=== PATIENT | female | born 1995 | race Caucasian/White ===

== ENCOUNTER 2021-04-06 14:31 | Emergency (ER) | payer OTHER, SELFPAY ==
[2021-04-06 14:32] VITALS: BP 176/105; PULSE 90; RESP 16; TEMP 36.6; O2SAT 100; BMI 36.6
[2021-04-06 14:39] VITALS: BP 176/105; PULSE 90; RESP 16; TEMP 36.6; O2SAT 100
--- NOTE | 2021-04-06 14:58 | CT_ITS ---
HISTORY: Abdominal pain EXAMINATION: CT Abdomen And Pelvis W/ Contrast Injection TECHNIQUE: Helically acquired images were obtained of the abdomen and pelvis following oral and IV contrast. IV Contrast dosage and agent: 100mL Isovue-300 Oral contrast: Yes. COMPARISON: None. FINDINGS: LOWER CHEST: Lung bases are clear. No cardiomegaly or pericardial effusion. LIVER: Homogeneous. No focal mass. GALLBLADDER AND BILIARY TREE: No calcified gallstones. No gallbladder distension or wall edema. No intra- or extrahepatic biliary ductal dilation. PANCREAS: No focal cystic or solid mass. SPLEEN: Normal size without focal cystic or solid mass. ADRENAL GLANDS: No nodules. KIDNEYS AND URETERS: Normal renal size and position. No hydronephrosis or nephrolithiasis. PERITONEUM: No ascites or free air. BOWEL: Normal appendix. No stomach or bowel distension. No focal inflammatory bowel wall changes. LYMPH NODES: Cluster of mildly enlarged mesenteric lymph nodes in the right lower quadrant. VESSELS: Aorta is non-dilated. URINARY BLADDER: Unremarkable. REPRODUCTIVE ORGANS: No pelvic masses. ABDOMINAL WALL: No discrete abdominal or pelvic wall hernia. BONES: No acute or aggressive abnormality. CT/Abdomen/Pelvis WITH Contrast IMPRESSION: Findings consistent with mesenteric adenitis in the appropriate clinical setting. Otherwise no acute findings in the abdomen or pelvis. Individualized dose optimization techniques were used for this CT. at 1717 Reported and signed by: Miguel Angulo MD Electronically Signed: Miguel Angulo MD at 17:16 EST ,
--- NOTE | 2021-04-06 15:04 | EDS_ITS ---
HPI HPI - GI History of Present Illness Chief Complaint: Abd Pain Informant: patient Abdominal Pain/Flank Pain Onset: Yesterday Context: Gradual Onset Timing: Continuous Quality: Dull and Sharp Location: RLQ Worsened by: Movement Relieved by: Remaining Still Nausea/Vomiting/Emesis GI Symptom: Positive for Nausea; Negative for Vomiting Diarrhea/Melena/Hematochezia GI Symptom: Negative for Diarrhea, Melena and Hematochezia Associated Symptoms Associated Symptoms: Negative for Dysuria, Frequency and Hematuria Narrative Narrative: Patient presents with right lower quadrant abdominal pain that began yesterday. Patient states her pain started in the right lower quadrant. Patient noted some redness over this area yesterday. Patient states this has resolved. Patient states her pain is worse whenever there is any pressure over the right lower abdomen. Patient describes her pain is constant dull ache but is sharp at times. Patient states it is worse with certain movements. Patient states it is better whenever she remains still. Patient admits to nausea but denies any vomiting. Patient states her appetite has not diminished. Patient denies any diarrhea, melena, or hematochezia. Patient denies any urinary complaints. Patient states her last menstrual period was 3 weeks ago. [facility] Medical History Asthma Home Medications desogestrel-ethinyl estradiol [Enskyce] tab 04/06/21 [History Last Taken Un known] levalbuterol HCl INHALATION 04/06/21 [History Last Taken Unknown] levothyroxine 04/06/21 [History Last Taken Unknown] Allergy/AdvReac Type Severity Reaction Status Date / Time amoxicillin [From Augmentin] Allergy Other Verified 04/06/21 14:32 azithromycin [From Zithromax] Allergy Other Verified 04/06/21 14:32 clavulanic acid Allergy Other Verified 04/06/21 14:32 [From Augmentin] Surgical History Hx of tonsillectomy Social History Smoking Status: Never smoker ROS ROS ED Constitutional Constitutional ED: Denies chills or fever(s) Eyes Eyes: Denies blurry vision or change in vision ENT ENT ED: Denies rhinorrhea or sore throat Cardiovascular Cardiovascular: Denies chest pain or palpitations Respiratory/Chest Respiratory/Chest: Denies cough or dyspnea Gastrointestinal Gastrointestinal: Reports abdominal pain and nausea; Denies diarrhea or vomiting Genitourinary Genitourinary ED: Denies dysuria or hematuria Musculoskeletal Musculoskeletal: Denies back pain or neck pain Integumentary Denies abscess or rash Neurologic Neurologic: Denies headache(s) or weakness Allergic/Immunologic Allergic/Immunologic ED: Denies mouth swelling or urticaria EXAM Physical Exam Const Vital Signs: 04/06/21 14:32 04/06/21 14:39 04/06/21 16:35 Temperature 97.8 F 97.8 F 97.5 F L Temperature Source Temporal Temporal Temporal Pulse Rate 90 90 75 Respiratory Rate 16 16 14 Blood Pressure 176/105 H 176/105 H 150/104 H Blood Pressure Mean 128 128 119 Pulse Ox 100 100 Oxygen Delivery Method Room Air Room Air Room Air Positive well nourished and well developed General Appearance ED: well developed HEENT Reports moist mucous membranes Neck supple and no JVD Resp normal respiratory effort and clear to auscultation bilaterally Cardio regular rate, regular rhythm and no murmurs GI normal to inspection, nondistended, normoactive bowel sounds Auscultation: normoactive bowel sounds Palpation: soft and tender RLQ; Negative for guarding or rebound tenderness present Extremity normal to inspection General Extremety ED: Negative for edema or tenderness General Extremity: Negative for edema Neuro oriented x3, CN's II-XII intact bilaterally and no sensory deficits noted Sensorium / Orientation: alert Motor Exam: strength 5/5 throughout Psych mental status grossly normal Skin no rashes or lesions noted MDM MDM MDM Narrative Medical decision making narrative: Patient was given IV fluids, morphine, and Zofran here. CBC was within normal limits. Comprehensive metabolic profile was normal. Lipase was normal. Serum hCG was negative. Urinalysis does not show any evidence of urinary tract infection. CT scan of the abdomen and pelvis was obtained. There is no evidence of appendicitis. There is some mesenteric adenitis noted. Patient was advised of her findings. Patient was instructed to take Tylenol or ibuprofen as needed for pain. Patient was instructed to follow- up with her primary care physician in 5 to 7 days. Patient understood and was agreeable with the plan. All questions were answered. Lab Data Attestation: I reviewed the patient's lab results. Labs: Laboratory Results - last 24 hr 04/06/21 04/06/21 04/06/21 14:22 14:22 14:22 WBC 7.8 RBC 5.10 Hgb 14.2 Hct 42.4 MCV 83.1 MCH 27.8 MCHC 33.5 RDW Std Deviation 37.9 RDW Coeff of Pilar 12.4 Plt Count 244 MPV 10.7 Immature Gran % (Auto) 0.100 Neut % (Auto) 53.8 Lymph % (Auto) 33.6 [place] % (Auto) 8.3 Eos % (Auto) 3.7 Baso % (Auto) 0.5 Absolute Neuts (auto) 4.2 Absolute Lymphs (auto) 2.63 Nucleated RBC % 0 Sodium 140 Potassium 3.9 Chloride 111 H Carbon Dioxide 22.0 Anion Gap 7 BUN 15 Creatinine 0.86 Estim Creat Clear Calc 89.98 Est GFR (MDRD) Af Amer 104 Est GFR (MDRD) Non-Af 86 BUN/Creatinine Ratio 17.5 Glucose 98 Calcium 8.7 Total Bilirubin 0.30 AST 13 L ALT 18 Alkaline Phosphatase 67 Total Protein 7.1 Albumin 3.4 Globulin 3.7 Albumin/Globulin Ratio 0.9 Lipase 89 Serum , Qual NEGATIVE Urine Color Urine Clarity Urine pH Ur Specific [place] Urine Protein Urine Glucose (UA) Urine Ketones Urine Occult Blood Urine Nitrite Urine Bilirubin Urine Urobilinogen Ur Leukocyte Esterase Urine RBC Urine WBC Ur Squamous Epith Cells Urine Bacteria Urine Mucus 04/06/21 15:55 WBC RBC Hgb Hct MCV MCH MCHC RDW Std Deviation RDW Coeff of Pilar Plt Count MPV Immature Gran % (Auto) Neut % (Auto) Lymph % (Auto) [place] % (Auto) Eos % (Auto) Baso % (Auto) Absolute Neuts (auto) Absolute Lymphs (auto) Nucleated RBC % Sodium Potassium Chloride Carbon Dioxide Anion Gap BUN Creatinine Estim Creat Clear Calc Est GFR (MDRD) Af Amer Est GFR (MDRD) Non-Af BUN/Creatinine Ratio Glucose Calcium Total Bilirubin AST ALT Alkaline Phosphatase Total Protein Albumin Globulin Albumin/Globulin Ratio Lipase Serum , Qual Urine Color Yellow Urine Clarity Clear Urine pH 6.0 Ur Specific [place] 1.020 Urine Protein Negative Urine Glucose (UA) Normal Urine Ketones Negative Urine Occult Blood Negative Urine Nitrite Negative Urine Bilirubin Negative Urine Urobilinogen Normal Ur Leukocyte Esterase 100 H Urine RBC 0 SEEN Urine WBC 0-5 SEEN Ur Squamous Epith Cells 0-5 SEEN Urine Bacteria 0 SEEN Urine Mucus 0 SEEN Radiography Diagnostic Testing: Clinical Impression(s) from Imaging Studies Abdomen/Pelvis CT 04/06/21 14:58 IMPRESSION: Findings consistent with mesenteric adenitis in the appropriate clinical setting. Otherwise no acute findings in the abdomen or pelvis. Individualized dose optimization techniques were used for this CT. at 1717 Reported and signed by: Miguel Angulo MD Electronically Signed: Miguel Angulo MD at 17:16 EST , Discharge Plan Triage Chief Complaint: Abd Pain Other Complaint: Other, Pain/Inj ED Provider: Leonel Patton Dx/Rx/DC Orders Clinical Impression: Mesenteric adenitis Instructions: ED Adenitis, Mesenteric Prescriptions: No Action desogestrel-ethinyl estradiol [Enskyce] 0.15-0.03 mg tablet RF: 0 levalbuterol HCl 0.63 mg/3 mL solution for nebulization INHALATION RF: 0 levothyroxine 25 mcg tablet RF: 0 Primary Care Provider: Wyatt Porter Referrals: Wyatt Porter MD [Primary Care Provider] - 5-7 Days Disposition Disposition: Home, Self Care
[2021-04-06] MEDS: Ondansetron 4 MG/2 ML Vial IV (15:09)
[2021-04-06] MEDS: 0.9% Normal Saline 1,000 ML 1000 ML IV (15:10)
[2021-04-06] MEDS: Morphine 4 MG/ML Syringe IV (15:10)
[2021-04-06 15:14] LABS: Absolute Lymphocyte Count 2.63 X10^3/uL (0.83-4.51); Absolute Neutrophil Count 4.2 X10^3/uL (2.0-7.7); Basophil# 0.04 X10^3/uL; Basophil% 0.5 % (0-1); Eosinophil# 0.29 X10^3/uL; Eosinophils% 3.7 % (0-5); Hematocrit 42.4 % (37-47); Hemoglobin 14.2 g/dL (12.0-15.0); Lymphocyte # 2.63 X10^3/ul (0.83-4.51); Lymphocyte % 33.6 % (19-41); Mean Corp Hgb Conc 33.5 g/dL (32-36); Mean Corpuscular Hgb 27.8 pg (27.0-32.0); Mean Corpuscular Volume 83.1 fL (81-99); Mean Platelet Vol. 10.7 fl (6.2-12.0); Monocyte# 0.65 X10^3/uL; Monocyte% 8.3 % (0-10); NRBC Flagged by Analyzer 0 % (0-5); Neutrophil % 53.8 % (47-70); Platelet Count 244 K/mm3 (150-450); RBC Distribution Width CV 12.4 % (11.6-14.6); RBC Distribution Width SD 37.9 fl (35.1-43.9); White Blood Count 7.8 K/mm3 (4.4-11.0)
[2021-04-06 15:33] LABS: ALB/GLOB Ratio 0.9 RATIO (0.9-2.4); AST(SGOT) 13 U/L (15-37); Alanine Aminotransfer ALT/SGPT 18 U/L (13-56); Albumin, Serum 3.4 g/dL (3.2-5.0); Alkaline Phosphatase 67 U/L (45-117); Anion Gap 7 (5-15); BUN 15 mg/dL (7-18); BUN/Creat Ratio 17.5 RATIO (10-20); Calcium,Total 8.7 mg/dL (8.5-10.1); Chloride 111 mmol/L (98-107); Creatinine, Serum 0.86 mg/dL (0.55-1.02); EST Glomerular Filtration Rate 86 mL/min (>60); Est Glom Filt Rate - Afr Amer 104 mL/min (>60); Estimated Creatinine Clearance 89.98 ml/min; Globulin 3.7 g/dL (2.2-4.2); Glucose 98 mg/dL (74-106); Lipase 89 U/L (73-393); Potassium 3.9 mmol/L (3.5-5.1); Protein, Total 7.1 g/dL (6.4-8.2); Sodium Level 140 mmol/L (136-145)
[2021-04-06 15:50] LABS: Internal QC Validated? YES +Cl - CLEAR BKGD; Pregnancy, Serum, hCG Quali. NEGATIVE Negative
[2021-04-06 16:13] LABS: Bacteria 0 SEEN /hpf (None Seen); Mucous, Urine 0 SEEN /hpf (<or=2+); Red Blood Cells-Urine 0 SEEN /hpf (0-5)
[2021-04-06 16:30] LABS: Color, Urine Yellow (Yellow); Glucose, Dipstick Normal (Normal); Ketone-Dipstick Negative (Negative); Leukocyte Esterase-Dipstick 100 /ul (Negative); Nitrite-Dipstick Negative (Negative); Occult Blood-Urine Negative /ul (Negative); Protein-Dipstick Negative (Negative); Urine Bilirubin Dipstick Negative (Negative); Urine Clarity Clear (Clear); Urine Urobilinogen Normal (Normal)
[2021-04-06 16:35] VITALS: BP 150/104; PULSE 75; RESP 14; TEMP 36.4
[2021-04-06 16:38] LABS: Squamous Epithelial Cells - UA 0-5 SEEN /hpf (5-10); White Blood Cells 0-5 SEEN /hpf (0-5)
[2021-04-06 17:31] VITALS: BP 141/90; PULSE 77; RESP 16; O2SAT 100
== END 2021-04-06 17:32 | disposition home or self-care (01) ==
PROVIDERS: Emergency Provider Emergency Medicine; PCP Family Medicine; Visit Provider Emergency Medicine
DX: I88.0 Nonspecific mesenteric lymphadenitis (principal)
CPT/HCPCS: 74177; 80053; 81001; 83690; 84703; 85025; 96361; 96374; 96375; 99283; J7030; Q9967; A4216; J2405

== ENCOUNTER 2022-11-26 19:51 | Emergency (ER) | payer OTHER, SELFPAY ==
[2022-11-26 19:53] VITALS: BP 147/99; PULSE 77; RESP 18; TEMP 36.6; O2SAT 100; BMI 31.8
[2022-11-26] MEDS: Ipratropium/Albuterol Sulfate 3 ML AMPUL.NEB INHALATION (22:03)
[2022-11-26 22:07] VITALS: PULSE 75; RESP 16
[2022-11-26] MEDS: MethylPREDNISolone 125 MG/2 ML Vial 60 MG IV (22:07)
--- NOTE | 2022-11-26 22:17 | RAD_ITS ---
INDICATION: Dyspnea EXAMINATION/TECHNIQUE: X-RAY - XR Chest 2 Views COMPARISON: None. FINDINGS: LINES/DEVICES: None. LUNGS: No consolidation, edema or effusion. No pneumothorax. MEDIASTINUM AND CARDIOVASCULAR STRUCTURES: Cardiac silhouette not enlarged. Central airways and mediastinal contour are unremarkable. BONES AND SOFT TISSUES: No acute pathology. RAD/Chest PA and Lateral IMPRESSION: No radiographic evidence of acute cardiopulmonary disease. Electronically Signed: Miguel Angulo MD at 22:38 EDT ,
--- NOTE | 2022-11-26 23:00 | EDS_ITS ---
HPI History of Present Illness Chief Complaint: Asthma Informant: patient Onset/Context/Timing Onset: Weeks (1) Context: gradual Timing: Continuous Worsened by: Nothing Relieved by: Nothing Associated Symptoms cough, rhinorrhea and yellow sputum; Negative for post nasal drip, ear pain, fever, sore throat, chills, sweats, white sputum or green sputum Chest Pain: Positive for None Narrative Narrative: Patient presents with shortness of breath that has been getting worse over the past week. Patient states it is gradually getting worse. Patient states she went to an urgent care and was given a prescription for prednisone. Patient states she has been taking this for the last 3 days with minimal relief. Patient states her shortness of breath is constant but waxes and wanes. Patient states nothing makes it better nothing makes it worse. Patient admits to a co [facility] with some yellow sputum. Patient denies any fevers or chills. Patient denies any chest pain. PE Risk Factors: Negative for Cancer, OCP + Smoking + > 35, Prior DVT or PE, Recent immobilization, Recent surgery or Recent travel [facility] Medical History Asthma Home Medications desogestrel 0.15 mg-ethinyl estradiol 0.03 mg tablet (Enskyce) tab 04/06/21 [History Last Taken Unknown] levalbuterol HCl 0.63 mg/3 mL solution for nebulization inhalation 04/06/21 [History Last Taken Unknown] levothyroxine 25 mcg tablet 04/06/21 [History Last Taken Unknown] Allergy/AdvReac Type Severity Reaction Status Date / Time amoxicillin [From Augmentin] Allergy Other Verified 11/26/22 19:52 azithromycin [From Zithromax] Allergy Other Verified 11/26/22 19:52 clavulanic acid Allergy Other Verified 11/26/22 19:52 [From Augmentin] Surgical History Hx of tonsillectomy Social History Smoking Status: Never smoker ROS ROS ED Constitutional Constitutional ED: Denies chills or fever(s) Eyes Eyes: Denies blurry vision or change in vision ENT ENT ED: Denies rhinorrhea or sore throat Cardiovascular Cardiovascular: Denies chest pain or palpitations Respiratory/Chest Respiratory/Chest: Reports cough and dyspnea Gastrointestinal Gastrointestinal: Denies nausea or vomiting Genitourinary Genitourinary ED: Denies dysuria or hematuria Musculoskeletal Musculoskeletal: Reports back pain; Denies neck pain Integumentary Denies abscess or rash Neurologic Neurologic: Reports headache(s); Denies weakness Allergic/Immunologic Allergic/Immunologic ED: Denies mouth swelling or urticaria EXAM Physical Exam Const Vital Signs: 11/26/22 19:53 11/26/22 22:13 11/26/22 22:07 Temperature 97.8 F Temperature Source Temporal Pulse Rate 77 75 Respiratory Rate 18 16 Respiratory Effort Normal Non-Labored Respiratory Depth Normal Respiratory Pattern Normal Blood Pressure 147/99 H Blood Pressure Mean 115 Pulse Ox 100 Oxygen Delivery Method Room Air Positive well nourished and well developed General Appearance ED: well developed and NAD HEENT Reports moist mucous membranes Neck supple, no meningeal signs and no JVD Resp normal respiratory effort Auscultation: wheezes expiratory wheezes (Slight) Cardio regular rate and regular rhythm GI non-tender and non-distended Palpation: soft Extremity General Extremety ED: Negative for edema or tenderness General Extremity: Negative for edema Neuro oriented x3, CN's II-XII intact bilaterally and no sensory deficits noted [place] Coma Scale: document GCS findings Spontaneous Obeys Commands Oriented 15 Sensorium / Orientation: alert Speech: speech normal Motor Exam: strength 5/5 throughout MDM MDM MDM Narrative Medical decision making narrative: Differential diagnosis includes asthma, reactive airway disease, viral upper respiratory infection, pneumonia, COVID-19 infection, influenza infection, RSV infection, and anxiety. Patient has a Wells score of 0 and has no PE risk factors. I do not feel this is from a pulmonary embolism. Chest x-ray will be obtained to assess for pneumonia. RSV rapid antigen will be obtained to assess for RSV infection. COVID-19 rapid antigen will be obtained to assess for COVID- 19 infection. Influenza A and influenza B antigens will be obtained to assess for influenza infection. Lab Data Lab results narrative: COVID-19 rapid antigen was reviewed and was negative. Influenza A and influenza B antigens were reviewed and were negative. RSV rapid antigen was reviewed and was negative. Radiography Chest X-Ray - ED: 2 View, Read by ED Physician, Read by Radiologist and No Acute Disease Diagnostic Testing: Clinical Impression(s) from Imaging Studies Chest X-Ray 11/26/22 22:17 IMPRESSION: No radiographic evidence of acute cardiopulmonary disease. Electronically Signed: Miguel Angulo MD at 22:38 EDT , PA and lateral chest x-ray was obtained. There are 2 views. On my independent interpretation, lung woodward are clear. There is normal cardiac silhouette. Bony thorax is normal. There is no acute process noted. Radiologist also interpreted the x-ray and agrees. Treatment and Re-Evaluation :: Patient was given a DuoNeb aerosol here. Patient was given a dose of Solu- Medrol. Patient is feeling better on reevaluation. Patient was advised of her findings. Patient was instructed to drink plenty of fluids. Patient was instructed to follow-up with her primary care physician in 5 to 7 days. Patient and mother understood and were agreeable with the plan. All questions were answered. Discharge Plan Triage Chief Complaint: Asthma ED Provider: Leonel Patton Dx/Rx/DC Orders Clinical Impression: Asthma exacerbation, Dyspnea Instructions: ED Asthma, Acute (Adult) Prescriptions: No Action desogestrel-ethinyl estradiol [Enskyce] 0.15-0.03 mg tablet Patient Comments: TAKE 1 TABLET BY MOUTH ONCE DAILY levalbuterol HCl 0.63 mg/3 mL solution for nebulization INHALATION levothyroxine 25 mcg tablet Primary Care Provider: Wyatt Porter Referrals: Wyatt Porter MD [Primary Care Provider] - 3-5 Days Disposition Disposition: Home, Self Care
[2022-11-26 23:56] VITALS: PULSE 69; RESP 18; O2SAT 98
[2022-11-27 00:13] VITALS: PULSE 67; RESP 14; O2SAT 100
== END 2022-11-27 00:13 | disposition home or self-care (01) ==
PROVIDERS: Emergency Provider Emergency Medicine; PCP Family Medicine; Visit Provider Emergency Medicine
DX: J45.901 Unspecified asthma with (acute) exacerbation (principal); R06.00 Dyspnea, unspecified
CPT/HCPCS: 71046; 87428; 87807; 94640; 96374; 99283; A4216

== ENCOUNTER 2023-06-19 08:18 | Emergency (ER) | payer OTHER, SELFPAY ==
[2023-06-19 08:19] VITALS: BP 137/93; PULSE 96; RESP 16; TEMP 35.9; O2SAT 98; BMI 31.0
--- NOTE | 2023-06-19 08:44 | CT_ITS ---
STUDY: CT ABDOMEN AND PELVIS WITH CONTRAST REASON FOR EXAM: Female, 27 years old. Abd pain, bloody diarrhea -- IV PO Contrast RADIATION DOSAGE (If Supplied By Facility): CTDIvol = ( 13.63 ) mGy, DLP = ( 890.37 ) mGycm TECHNIQUE: Transaxial images were obtained from the dome of the diaphragm to the symphysis pubis without oral contrast. Oral and amp; IV Gastrografin and amp; 100mL Isovue-300 was administered. Sagittal and coronal images were reconstructed. Individualized dose optimization techniques were used for this CT. COMPARISON: Comparison is made with prior study dated April 06, 2021. FINDINGS: The visualized lung bases are unremarkable. The visualized portions of the heart are within normal limits. Normal liver. Normal gallbladder and extrahepatic biliary system. Normal spleen. Normal pancreas. Normal bilateral adrenal glands. Normal right kidney. Normal left kidney. Normal visualized stomach. Normal small intestine. There is evidence of díaz colitis. The appendix is visualized and appears normal. Normal abdominal aorta. Normal inferior vena cava. Normal retroperitoneum. Normal urinary bladder. Small amount of free fluid in the pelvis. Normal abdominal wall. Normal osseous structures. CT/Abdomen/Pelvis WITH Contrast IMPRESSION: Díaz colitis. Electronically Signed: Kimani Jackson MD at 11:21 EDT ,
--- NOTE | 2023-06-19 08:56 | EX.ED.DYSGE1 ---
HPI History of Present Illness Chief Complaint: GI Bleed Informant: patient Narrative Narrative: Patient presents secondary to abdominal pain with bloody diarrhea. She reports having abdominal cramping with diarrhea for the past day and a half. Today she started having bloody diarrhea. She describes blood mixed with stool. No known history of irritable bowel syndrome, ulcerative colitis, or Crohn's disease. She has had some night sweats but no measured fever. No recent antibiotics. Patient is reportedly caring for sick sheep and is unsure if she may have contracted something. [facility] Medical History (Updated 06/19/23 @ 12:[address] Milly Beach MD) Asthma Hypothyroidism Home Medications desogestrel 0.15 mg-ethinyl estradiol 0.03 mg tablet (Enskyce) tab 04/06/21 [History Last Taken Unknown] levalbuterol HCl 0.63 mg/3 mL solution for nebulization inhalation 04/06/21 [History Last Taken Unknown] levothyroxine 25 mcg tablet 04/06/21 [History Last Taken Unknown] ciprofloxacin HCl 500 mg tablet (Cipro) 500 mg PO BID #20 tabs 06/19/23 [Rx Last Taken Unknown] metronidazole 500 mg tablet 500 mg PO Q8H #30 tabs 06/19/23 [Rx Last Taken Unknown] Allergy/AdvReac Type Severity Reaction Status Date / Time amoxicillin [From Augmentin] Allergy Other Verified 06/19/23 08:19 azithromycin [From Zithromax] Allergy Other Verified 06/19/23 08:19 clavulanic acid Allergy Other Verified 06/19/23 08:19 [From Augmentin] Surgical History Hx of tonsillectomy Social History Smoking Status: Never smoker ROS ROS ED Constitutional Constitutional ED: Reports sweats; Denies chills or fever(s) Eyes Eyes: Denies change in vision or discharge from eye(s) ENT ENT ED: Denies discharge from eye(s), rhinorrhea or sore throat Cardiovascular Cardiovascular: Denies chest pain or palpitations Respiratory/Chest Respiratory/Chest: Denies cough or dyspnea Gastrointestinal Gastrointestinal: Reports abdominal pain, diarrhea and nausea; Denies vomiting Genitourinary Genitourinary ED: Denies dysuria Musculoskeletal Musculoskeletal: Denies back pain or extremity pain Integumentary Denies Abrasions or rash Neurologic Neurologic: Denies headache(s) or weakness Psychiatric Psychiatric: Denies anxiety or depression Allergic/Immunologic Allergic/Immunologic ED: Denies lip swelling or urticaria EXAM Physical Exam Const Vital Signs: 06/19/23 08:19 06/19/23 11:00 Temperature 96.7 F L Temperature Source Temporal Pulse Rate 96 68 Respiratory Rate 16 16 Blood Pressure 137/93 H 129/91 H Blood Pressure Mean 107 103 Pulse Ox 98 100 Oxygen Delivery Method Room Air Room Air Positive well nourished and well developed General Appearance ED: well developed HEENT Reports moist mucous membranes Eyes EOMs intact bilaterally Neck no lymphadenopathy Chest Wall inspection of chest normal and palpation of chest normal Resp normal respiratory effort and clear to auscultation bilaterally Cardio regular rate and regular rhythm GI GI Narrative: Abdomen soft with no focal tenderness to palpation. Hypoactive but present bowel sounds are noted. Extremity normal to inspection Neuro oriented x3 and no sensory deficits noted Motor Exam: strength 5/5 throughout Psych mental status grossly normal Skin no rashes or lesions noted MDM MDM MDM Narrative Medical decision making narrative: IV line established. Patient given morphine and Zofran along with IV fluids. Labwork obtained to evaluate for leukocytosis, anemia, and electrolyte derangement. Urinalysis obtained to evaluate for infection/hematuria. Stool studies ordered should patient be able to provide a sample. CT scan of the abdomen pelvis with p.o. and IV contrast obtained to evaluate for focal colitis. History & Record Review Discussion w/independent historian: Patient and Family Lab Data Attestation: I reviewed the patient's lab results. Labs: Laboratory Results - last 24 hr 06/19/23 09:05 WBC 9.7 RBC 5.69 H Hgb 15.8 H Hct 48.2 H MCV 84.7 MCH 27.8 MCHC 32.8 RDW Std Deviation 39.0 RDW Coeff of Pilar 12.8 Plt Count 197 MPV 10.3 Immature Gran % (Auto) 0.400 Neut % (Auto) 78.2 H Lymph % (Auto) 11.0 L [place] % (Auto) 8.7 Eos % (Auto) 1.2 Baso % (Auto) 0.5 Absolute Neuts (auto) 7.6 Absolute Lymphs (auto) 1.07 Nucleated RBC % 0 Sodium 138 Potassium 3.6 Chloride 108 H Carbon Dioxide 25.0 Anion Gap 5 BUN 8 Creatinine 0.89 Estim Creat Clear Calc 101.96 Est GFR (MDRD) Af Amer 98 Est GFR (MDRD) Non-Af 81 BUN/Creatinine Ratio 9.0 L Glucose 85 Calcium 9.2 Total Bilirubin 0.30 Direct Bilirubin 0.09 AST 16 ALT 24 Alkaline Phosphatase 74 Total Protein 7.8 Albumin 3.6 Globulin 4.2 Serum , Qual NEGATIVE Urine Color Yellow Urine Clarity Sl. Cloudy Urine pH 5.0 Ur Specific [place] 1.025 Urine Protein 30 H Urine Glucose (UA) Normal Urine Ketones 5 H Urine Occult Blood 50 H Urine Nitrite Positive H Urine Bilirubin 1 H Urine Urobilinogen 1 H Ur Leukocyte Esterase 500 H Urine RBC 0-5 SEEN Urine WBC 25-50 SEEN Ur Squamous Epith Cells 5-10 SEEN Urine Bacteria 1+ Urine Mucus 1+ Radiography Diagnostic Testing: Clinical Impression(s) from Imaging Studies Abdomen/Pelvis CT 06/19/23 08:44 IMPRESSION: Nguyen colitis. Electronically Signed: Kimani Jackson MD at 11:21 EDT , Treatment and Re-Evaluation :: CBC was normal white count at 9.7 with 78% neutrophils. Hemoglobin is concentrated at 15.8. Chemistry studies are unremarkable. LFTs are normal. test negative. Urinalysis does have positive nitrites with 25-50 white cells, however 5-10 epithelial cells are also noted with 1+ bacteria. CT scan of the abdomen pelvis reveals pancolitis. Given evidence of pancolitis and bleeding, I did speak with Dr. Casey. He did review the images and agrees that while it is diffuse, it is not severe. He does agree with treating her with antibiotics. Given her allergies she will be treated with Cipro and Flagyl. She will be referred to Dr. Casey for follow-up as needed and return instructions were provided. Discharge Plan Triage Chief Complaint: GI Bleed ED Provider: Milly Beach Dx/Rx/DC Orders Clinical Impression: Colitis Instructions: ED Understanding Colitis Prescriptions: New ciprofloxacin HCl [Cipro] 500 mg tablet 500 mg PO BID Qty: 20 0RF metronidazole 500 mg tablet 500 mg PO Q8H Qty: 30 0RF No Action desogestrel-ethinyl estradiol [Enskyce] 0.15-0.03 mg tablet Patient Comments: TAKE 1 TABLET BY MOUTH ONCE DAILY levalbuterol HCl 0.63 mg/3 mL solution for nebulization INHALATION levothyroxine 25 mcg tablet Stand Alone Forms: ED Work / School Excuse Primary Care Provider: Wyatt Porter Referrals: Wyatt Porter MD [Primary Care Provider] - 1-2 Weeks Nikhil Casey DO [Med Staff - Active Staff] - As Needed Disposition Disposition: Home, Self Care
[2023-06-19] MEDS: 0.9% Normal Saline (1000mL) 1,000 ML 1000 ML IV (09:16)
[2023-06-19] MEDS: Morphine 4 MG/ML Syringe IV (09:16)
[2023-06-19] MEDS: Ondansetron 4 MG/2 ML Vial IV (09:16)
[2023-06-19 09:23] LABS: Absolute Lymphocyte Count 1.07 X10^3/uL (0.83-4.51); Absolute Neutrophil Count 7.6 X10^3/uL (2.0-7.7); Basophil# 0.05 X10^3/uL; Basophil% 0.5 % (0-1); Eosinophil# 0.12 X10^3/uL; Eosinophils% 1.2 % (0-5); Hematocrit 48.2 % (37-47); Hemoglobin 15.8 g/dL (12.0-15.0); Lymphocyte # 1.07 X10^3/ul (0.83-4.51); Mean Corp Hgb Conc 32.8 g/dL (32-36); Mean Corpuscular Hgb 27.8 pg (27.0-32.0); Mean Corpuscular Volume 84.7 fL (81-99); Mean Platelet Vol. 10.3 fl (6.2-12.0); Monocyte# 0.84 X10^3/uL; Monocyte% 8.7 % (0-10); NRBC Flagged by Analyzer 0 % (0-5); Neutrophil # 7.57 X10^3/uL (2.7-7.7); Neutrophil % 78.2 % (47-70); Platelet Count 197 K/mm3 (150-450); RBC Distribution Width CV 12.8 % (11.6-14.6); Red Blood Count 5.69 M/mm3 (4.2-5.4); White Blood Count 9.7 K/mm3 (4.4-11.0)
[2023-06-19 09:24] LABS: Color, Urine Yellow (Yellow); Glucose, Dipstick Normal (Normal); Ketone-Dipstick 5 mg/dl (Negative); Leukocyte Esterase-Dipstick 500 /ul (Negative); Nitrite-Dipstick Positive (Negative); Occult Blood-Urine 50 /ul (Negative); Protein-Dipstick 30 mg/dl (Negative); Specific Gravity, Urine 1.025 (1.002-1.030); Urine Clarity Sl. Cloudy (Clear); Urine Urobilinogen 1 mg/dl (Normal)
[2023-06-19 09:25] LABS: Urine Bilirubin Dipstick 1 mg/dL (Negative)
[2023-06-19 09:30] LABS: Bacteria 1+ /hpf (None Seen); Internal QC Validated? YES +Cl - CLEAR BKGD; Mucous, Urine 1+ /hpf (<or=2+); Pregnancy, Serum, hCG Quali. NEGATIVE Negative; Red Blood Cells-Urine 0-5 SEEN /hpf (0-5); Squamous Epithelial Cells - UA 5-10 SEEN /hpf (5-10); White Blood Cells 25-50 SEEN /hpf (0-5)
[2023-06-19 09:40] LABS: AST(SGOT) 16 U/L (15-37); Alanine Aminotransfer ALT/SGPT 24 U/L (13-56); Albumin, Serum 3.6 g/dL (3.2-5.0); Alkaline Phosphatase 74 U/L (45-117); Anion Gap 5 (5-15); BUN 8 mg/dL (7-18); Bilirubin, Direct 0.09 mg/dL (0.00-0.30); Calcium,Total 9.2 mg/dL (8.5-10.1); Chloride 108 mmol/L (98-107); Creatinine, Serum 0.89 mg/dL (0.55-1.02); EST Glomerular Filtration Rate 81 mL/min (>60); Est Glom Filt Rate - Afr Amer 98 mL/min (>60); Estimated Creatinine Clearance 101.96 ml/min; Globulin 4.2 g/dL (2.2-4.2); Glucose 85 mg/dL (74-106); Potassium 3.6 mmol/L (3.5-5.1); Protein, Total 7.8 g/dL (6.4-8.2); Sodium Level 138 mmol/L (136-145)
[2023-06-19] MEDS: 0.9% Normal Saline (1000mL) 1,000 ML 150 ML IV (10:15)
[2023-06-19 11:00] VITALS: BP 129/91; PULSE 68; RESP 16; O2SAT 100
[2023-06-19] MEDS: metroNIDAZOLE 500 MG Tablet PO (12:51)
[2023-06-19] MEDS: Ciprofloxacin 500 MG Tablet PO (12:51)
[2023-06-19 12:53] VITALS: BP 132/91; PULSE 75; RESP 18; TEMP 37; O2SAT 96
== END 2023-06-19 12:55 | disposition home or self-care (01) ==
PROVIDERS: Emergency Provider Emergency Medicine; PCP Family Medicine; Visit Provider Emergency Medicine
DX: K52.9 Noninfective gastroenteritis and colitis, unspecified (principal); J45.909 Unspecified asthma, uncomplicated
CPT/HCPCS: 74177; 80048; 80076; 81001; 84703; 85025; 96361; 96374; 96375; 99283; J7030; Q9967; A4216; J2405